=== PATIENT | female | born 1960 | race Caucasian/White ===

== ENCOUNTER 2024-06-06 09:24 | Outpatient (AMB) | payer OTHER, SELFPAY ==
--- NOTE | 2024-06-06 09:31 | A.OFFPC_ITS ---
Vital Signs 06/06/24 09:41 06/06/24 09:53 Height 5 ft 1.02 in Weight 125 lb 6 oz BMI 23.7 BP 118/68 Blood Pressure Location Rt brachial Position Sitting Respiration 14 Pulse 41 L 56 Pulse Source Pulse Oximeter Temp 98.3 F Temp Source Oral Pulse Oximetry (%) 99 Oxygen Delivery Method Room Air Intake Visit Reasons: Physical Exam Intake Note: New patient visit [employer] Required: No Tobacco use date assessed: 06/06/24 Dental Screening Dental Screen Date: 06/06/24 Did you have a dental visit in the last 12 months?: Yes Did you have a dental problem in the last 6 months where you did not have access to dental care?: No Was dental information given to patient?: Patient has dentist HPI HPI Comments History of Present Illness Details This is a 63-year-old female with a past medical history of sleep apnea, RLS, hypertension, hyperlipidemia, depression with anxiety and insomnia presenting for a physical exam. She transferred from my panel at [facility] primary care. Records transfer pending. Patient takes amlodipine 5 mg daily for hypertension. This is well-controlled. Her heart rate initially today was 41. It was 49 on her initial EKG, 53 on her subsequent EKG and 56 when I checked manually. Patient feels well today. No dizziness, palpitations, chest pain, syncope or shortness of breath. We pulled up a note from [facility], and her heart rate was 66 at her last appointment earlier this year. Mammogram is up-to-date per patient. Her records have not transferred from [facility] yet. She has not had a colonoscopy. She has a gastroenterology appointment scheduled to discuss her concerns about the procedure. She does not want anesthesia, and she wants to see if there is an alternative to the traditional prep. She would like to have a Cologuard done in the meantime. She does not have a history of colon cancer or polyps. Eye and dental exams are up-to-date as well as her annual gynecologic exam. She sees Dr. Mireille Benavides at [facility] neurology for sleep apnea and RLS. Patient would like to make an appointment with Dr. Benavides regarding ongoing episodes of dizziness for 3 years. Patient says sometimes it feels like her brain is moving when she is not. Difficult for her to describe. She was reading about this online, and she says it is something to do with the spine. It h appens when she is standing and sitting. She does not have to be moving to trigger this. Patient endorses anterior left knee pain only with kneeling for the past 3 months. She was doing modified pushups on her knees before it started. She has normal range of motion. She can walk and go up and downstairs without any pain. She doesn't plan to get further boosters of COVID-19 vaccine. She is going to get the flu shot. ROS: Constitutional: No unexplained weight loss, fever, chills or night sweats. Eyes: No vision changes, blurry vision, double vision, eye pain, eye redness, eye discharge. ENT: No hearing loss, sneezing, congestion, runny nose or sore throat. Respiratory: No shortness of breath, cough or sputum production. Cardiovascular: No chest pain, chest pressure or chest discomfort. No palpitations or pedal edema. Gastrointestinal: No anorexia, nausea, vomiting or diarrhea. No abdominal pain or blood in stool. Genitourinary: No dysuria, hematuria, urinary frequency. Neurologic: No headache, syncope, unilateral weakness, ataxia, numbness or tingling in the extremities. Musculoskeletal: see HPI Hematologic/Lymphatics: No bleeding or bruising. No painful lymph nodes. Skin: No rash or itching. Endocrine: No cold or heat intolerance. No polyuria or polydipsia. Psychiatric: No SI/HI. Physical exam: Constitutional: Alert, in no distress. Head: Normocephalic. Eyes: Pupils are equal, round and reactive to light. Extraocular muscles intact. Ear, Nose and Throat: Canals clear. TMs normal. Normal nasal mucosa. No nasal discharge. No oral lesions. Neck: Supple, Full range of motion. No lymphadenopathy. No palpable thyroid masses. Respiratory: Clear to auscultation. Cardiovascular: S1 S2 regular. No murmurs. Gastrointestinal: Abdomen soft, non-tender, non-distended. Normal bowel sounds. No palpable masses. Neurologic: No focal neurological deficits. Symmetric patellar reflexes. Moves all extremities spontaneously. Sensation intact bilaterally. Skin: No rash. Knees: No gross deformities. Normal range of motion. No visible swelling. Nontender. Normal gait. Extremities: Warm and well perfused. No clubbing, cyanosis or edema. 3+ peripheral pulses bilaterally. Psychiatric: Normal mood and affect [facility] Medical History (Updated 06/06/24 @ 12:15 by SANJU Kiser) Left knee pain Bradycardia Dizziness Weight loss, unintentional Sleep apnea Restless leg syndrome Periodic limb movement disorder DOMI (obstructive sleep apnea) Insomnia Hyperlipidemia Hypercoagulable state Foot cramps Exposure to hepatitis C Eczema Depression Benign essential hypertension Anxiety Surgical History (Updated 06/06/24 @ 09:57 by Purvi Brooks CMA) History of nasal surgery History of back surgery Family History (Updated 06/06/24 @ 11:05 by Purvi Brooks CMA) Mother HTN (hypertension) Clotting disorder Father HTN (hypertension) Clotting disorder Brother Prostate cancer Other High blood cholesterol Social History (Updated 06/06/24 @ 09:58 by Purvi Brooks CMA) Housing: House Patient Tobacco Use Status: Never used Tobacco e-Cigarette/Vaping Use: Never Used Second Hand Smoke Exposure: No service: No Current occupational status: unemployed Cognitive needs: No Hearing needs: No Vision needs: Yes (glasses) Questionnaire PHQ-9 Over the last 2 weeks, how often have you been bothered by any of the following problems? 1. Little interest or pleasure in doing things: not at all 2. Feeling down, depressed, or hopeless: not at all 3. Trouble falling or staying asleep, or sleeping too much: more than half the days 4. Feeling tired or having little energy: not at all 5. Poor appetite or overeating: not at all 6. Feeling bad about yourself - or that you are a failure or have let yourself or your family down: not at all 7. Trouble concentrating on things, such as reading the newspaper or watching television: not at all 8. Moving or speaking so slowly that other people could have noticed. Or the opposite - being so fidgety or restless that you have been moving around a lot more than usual: not at all 9. Thoughts that you would be better off or of hurting yourself in some way: not at all Total score: 2 Depression Screening Interpretation: Positive Depression Screening Done: Yes 33040 - PHQ-9 Billing: Yes Source: Developed by Drs. Alistair Salinas, Chiquis Moore, Scottie Wharton and colleagues, with an educational jeannie from [employer]. Thrive Questionnaire Date Thrive assessed: 06/06/24 I am a: Patient What is your living situation today?: I have a steady place to live Within the past 12 months, did the food you bought not last and you didn't have the money to get more?: Never true Within the past 12 months, did you worry whether your food would run out before you got money to buy more?: Never true Do you have trouble paying for medicines?: No Do you have trouble getting transportation to medical appointments?: No Do you have trouble paying your heating and electricity bill?: Yes Do you have trouble taking care of your child, family member or friend?: No Do you have trouble with day-to-day activities such as bathing, preparing meals, shopping, managing finances, etc.?: No Are you currently unemployed and looking for a job?: No Are you interested in more education?: No Please select the resources that you would like help with: Utilities Currently or been in a relationship where the following occur: No concerns reported THRIVE Score: 1 AUDIT C Alcohol Use Questionnaire (AUDIT-C) 1. How often do you have a drink containing alcohol?: 4 or more times a week 2. How many drinks containing alcohol do you have on a typical day when you are drinking?: 1 or 2 3. How often do you have six or more drinks on one occasion?: Never Total Score: 4 APOLINAR-7 AMB Questionnaire APOLINAR-7 Date APOLINAR - 7 assessed: 06/06/24 Feeling nervous, anxious, or on edge: 0 = Not at all Not being able to stop or control worryin = Not at all Worrying too much about different things: 0 = Not at all Trouble relaxin = Not at all Being so restless that it is hard to sit still: 0 = Not at all Becoming easily annoyed or irritable: 0 = Not at all Feeling afraid as if something awful might happen: 0 = Not at all Total APOLINAR-7 score (0-4 normal; 5-9 mild; 10-14 moderate; 15-21 severe): 0 Source: Developed by Drs. Alistair Salinas, Chiquis Moore, Scottie Wharton and colleagues, with an educational jeannie from [employer]. APOLINAR-7 Assessment Billing APOLINAR-7 Assessment Tool: APOLINAR-7 Assessment 38778 Physical exam (Primary Care) Vital Signs: Last Vital Signs Temp 98.3 F 06/06/24 09:41 Pulse 56 06/06/24 09:53 Resp 14 06/06/24 09:41 BP 118/68 06/06/24 09:41 Pulse Ox 99 06/06/24 09:41 Oxygen Delivery Method Room Air 06/06/24 09:41 BMI result Body Mass Index 23.7 Tobacco/Smoking Status: Tobacco use Status Tobacco use date assessed 06/06/24 06/06/24 09:44 Patient Tobacco Use Status Never used Tobacco 06/06/24 09:58 e-Cigarette/Vaping Use Never Used 06/06/24 09:58 PHQ-9: PHQ-9 Score PHQ-9: Total score 2 06/06/24 11:05 Depression Screening Interpretation: Positive Thrive Assessment: Date of Thrive Assessment Date Thrive assessed 06/06/24 06/06/24 11:05 Currently or been in a relationship where the following occur: No concerns reported Office Procedures EKG Details: Patient's EKG shows sinus bradycardia, heart rate 53, left axis deviation [id number], Complete Assessment and Plan Assessment & Plan (1) Routine physical examination: Code(s): Z00.00 - Encounter for general adult medical examination without abnormal findings (2) Insomnia: Code(s): G47.00 - Insomnia, unspecified Plan: Continue zolpidem. She is prescribed 10 mg nightly, but she does not take this amount every night. She is aware it is more than the FDA recommended dose for women. She has been on it for years. I forgot to have her sign a controlled substance agreement today so she will do this at her next appointment. (3) DOMI (obstructive sleep apnea): Code(s): G47.33 - Obstructive sleep apnea (adult) (pediatric) (4) Periodic limb movement disorder: Code(s): G47.61 - Periodic limb movement disorder (5) Bradycardia: Code(s): R00.1 - Bradycardia, unspecified Plan: I am unsure if the dizziness she is reporting is related to bradycardia. Heart rate has decreased over this past year compared to record from [facility]. Patient referred to Cardiology to review EKGs and bradycardia. Warning signs warranting ER evaluation reviewed with the patient. (6) Benign essential hypertension: Code(s): I10 - Essential (primary) hypertension Plan: Continue amlodipine. (7) Hyperlipidemia: Code(s): E78.5 - Hyperlipidemia, unspecified Plan: Check fasting lipid profile. (8) Restless leg syndrome: Code(s): G25.81 - Restless legs syndrome Plan: Patient is seen today for a routine physical. As part of this visit we reviewed the following issues, which are considered and essential part of preventative health in this age group: - Breast Cancer screening - Annual Car Varnisher exam - Screening for colon cancer - Blood pressure screening - Cholesterol screening - Osteoporosis prevention including calcium/vitamin D intake, weight bearing exercise & smoking cessation - Nutritional and exercise counseling - Counseling of injury prevention including fire prevention, smoke alarms and seat belt usage - Screening for depression - Prevention of and/or testing for infectious diseases- agreeable to screenings including HIV testing. - Education about skin cancer - Recommendations about immunizations - Recommendation of an eye exam - Screening for substance abuse Follow up in 6 months. (9) Left knee pain: Code(s): M25.562 - Pain in left knee Plan Avoid kneeling or use knee pads if you must. She can do home PT exercises, declines referral to PT. Use neoprene sleeve for compression. Apply ice as needed for inflammation and pain. Orders: Orders IRON PROFILE Today R53.83 - Other fatigue Ferritin Today R53.83 - Other fatigue AMB EKG-In Office Today R42 - Dizziness and giddiness Comprehensive Met. Panel Today E78.5 - Hyperlipidemia, unspecified, G25.81 - Restless legs syndrome, R42 - Dizziness and giddiness Lipid Panel Today E78.5 - Hyperlipidemia, unspecified, G25.81 - Restless legs syndrome, R42 - Dizziness and giddiness TSH reflex Free T4 Today R42 - Dizziness and giddiness Vitamin D 1,25 dihydroxy Today G25.81 - Restless legs syndrome, I10 - Essential (primary) hypertension, R42 - Dizziness and giddiness CT NG by PCR Today Z20.2 - Contact with and (suspected) exposure to infections with a predominantly sexual mode of transmission HIV Ab/Ag Today Z20.2 - Contact with and (suspected) exposure to infections with a predominantly sexual mode of transmission Syphilis Screen Today Z20.2 - Contact with and (suspected) exposure to infections with a predominantly sexual mode of transmission Complete Blood Count Auto Diff Today R53.83 - Other fatigue Hepatitis C Antibody Today Z20.2 - Contact with and (suspected) exposure to infections with a predominantly sexual mode of transmission Referrals Cardiology Referral R00.1 - Bradycardia, unspecified Cologuard Test Z12.11 - Encounter for screening for malignant neoplasm of colon, Z12.12 - Encounter for screening for malignant neoplasm of rectum Medications: New zolpidem 10 mg PO BEDTIME PRN 30 tabs 0RF insomnia Coding Level of Care Code Est Pt Level 3 (48401) Est Pt Prev Care 40-64y(47891) Diagnoses Routine physical examination Z00.00 Insomnia G47.00 DOMI (obstructive sleep apnea) G47.33 Periodic limb movement disorder G47.61 Bradycardia R00.1 Benign essential hypertension I10 Hyperlipidemia E78.5 Restless leg syndrome G25.81 Left knee pain M25.562 CPT Codes EKG - CPT: 51271-[id number], Complete ([id number]) Additional Codes APOLINAR-7 Assessment Billing - APOLINAR-7 Assessment Tool: APOLINAR-7 Assessment [id number] ([id number])
[2024-06-06 09:41] VITALS: BP 118/68; PULSE 41; RESP 14; TEMP 36.8; O2SAT 99; BMI 23.7
[2024-06-06 09:53] VITALS: PULSE 56
== END 2024-06-06 10:55 | disposition home or self-care (01) ==
PROVIDERS: PCP Physician Assistant Medical; Visit Provider Physician Assistant Medical
DX: Z00.00 Encounter for general adult medical examination without abnormal findings (principal); G47.00 Insomnia, unspecified; G47.33 Obstructive sleep apnea (adult) (pediatric); G47.61 Periodic limb movement disorder; R00.1 Bradycardia, unspecified; I10 Essential (primary) hypertension; E78.5 Hyperlipidemia, unspecified; G25.81 Restless legs syndrome; M25.562 Pain in left knee

== ENCOUNTER → 2024-06-06 09:24 | Outpatient (BNVA) | payer OTHER, SELFPAY | PROVIDERS: PCP Physician Assistant Medical; Visit Provider Physician Assistant Medical | DX: Z00.01 Encounter for general adult medical examination with abnormal findings (principal); G47.00 Insomnia, unspecified; G47.33 Obstructive sleep apnea (adult) (pediatric); G47.61 Periodic limb movement disorder; R00.1 Bradycardia, unspecified; I10 Essential (primary) hypertension; E78.5 Hyperlipidemia, unspecified; G25.81 Restless legs syndrome; M25.562 Pain in left knee; Z79.899 Other long term (current) drug therapy | CPT/HCPCS: 93005; 96127 ==

== ENCOUNTER 2024-06-06 10:56 | Outpatient (REF) | payer OTHER, SELFPAY ==
[2024-06-06 14:24] LABS: MANUAL DIFF FLAG NO
[2024-06-06 14:27] LABS: Basophils Absolute Auto 0.1 X10*3/uL (0.0-0.2); Basophils Percent Auto 0.8 % (0-2); Eosinophils Absolute Auto 0.1 X10*3/uL (0.0-0.4); Eosinophils Percent Auto 0.9 % (0-4); Hematocrit 42.2 % (37.0-47.0); Hemoglobin 14.6 g/dl (12.0-16.0); Imm Gran Abs Auto 0.01 X10*3/uL (0.00-0.03); Imm Gran Pct Auto 0.2 % (0.0-0.4); Lymphocytes Absolute Auto 2.8 X10*3/uL (1.2-4.9); Lymphocytes Percent Auto 44.1 % (20-40); Mean Corpuscular HGB Conc 34.6 g/dl (31.0-35.0); Mean Corpuscular Hemoglobin 32.4 pg (27.0-33.0); Mean Corpuscular Volume 93.8 fL (80.0-98.0); Monocytes Absolute Auto 0.6 X10*3/uL (0.1-1.2); Monocytes Percent Auto 9.5 % (2-11); Neutrophils Absolute Auto 2.9 x10*3/uL (2.0-8.3); Neutrophils Percent Auto 44.5 % (45-73); Platelet Count 260 X10*3/uL (160-400); Red Cell Distribution Width 12.1 % (11.0-16.0); White Blood Count 6.4 X10*3/uL (4.8-10.8)
[2024-06-06 14:52] LABS: Alanine Aminotransferase 24 U/L (0-31); Albumin Level 4.4 g/dL (3.5-5.0); Alkaline Phosphatase 80 U/L (39-117); Anion Gap 11 (12-20); Aspartate Amino Transferase 28 U/L (5-31); Blood Urea Nitrogen 16 mg/dL (9-16); Carbon Dioxide 27 mmol/L (22-29); Chloride 105 mmol/L (96-108); Cholesterol 207 mg/dL (<200); Estimated Glomerular Filt Rate > 60; Glucose Random 94 mg/dL (60-115); HDL Cholesterol 104 mg/dL (>40); Iron 123 mcg/dL (30-160); LDL Cholesterol Calculated 93 mg/dL (<100); Percent Iron Saturation 40 % (15-50); Potassium 3.9 mmol/L (3.3-5.1); Sodium 139 mmol/L (135-145); Total Iron Binding Capacity 307 mcg/dL (228-428); Total Protein 7.3 g/dL (6.5-8.0); Triglycerides 53 mg/dL (<150); Unsaturated Iron Binding 184 ug/dL
[2024-06-06 15:06] LABS: Ferritin 177 ng/mL (10-250); TSH reflex Free T4 0.95 uIU/mL (0.32-4.0)
[2024-06-07 08:50] LABS: HIV AB/AG Nonreactive (Nonreactive); HIV Num 1 0.05 S/CO (0.00-0.99); ~Hepatitis C Antibody Nonreactive (Nonreactive)
[2024-06-07 08:54] LABS: Syphilis Screen Nonreactive (Nonreactive)
[2024-06-10 20:03] LABS: VITAMIN D (1,25 OH) D3 58 pg/mL; Vit D (1,25-Dihydroxy) Total 58 pg/mL (18-72); Vitamin D (1,25 OH) D2 <8 pg/mL
== END 2024-06-06 10:57 | disposition home or self-care (01) ==
LOC: HO.WFDLDS 10:56
PROVIDERS: Visit Provider Physician Assistant Medical
DX: R53.83 Other fatigue (principal); E78.5 Hyperlipidemia, unspecified; G25.81 Restless legs syndrome; R42 Dizziness and giddiness; I10 Essential (primary) hypertension; Z20.2 Contact with and (suspected) exposure to infections with a predominantly sexual mode of transmission
CPT/HCPCS: 36415; 80053; 80061; 82652; 82728; 83540; 84443; 85025; 86780; 86803; 87389

== ENCOUNTER 2024-12-08 09:02 | Outpatient (AMB) | payer OTHER, SELFPAY ==
--- NOTE | 2024-12-08 09:06 | A.OFFPC_ITS ---
Vital Signs 12/08/24 09:24 12/09/24 09:06 Height 5 ft 1.02 in Weight 111 lb BMI 21.0 BP 100/58 L 127/62 Blood Pressure Location Rt brachial Position Sitting Respiration 12 Pulse 62 Pulse Source Pulse Oximeter Pulse Oximetry (%) 100 Oxygen Delivery Method Room Air Intake Visit Reasons: htn Intake Note: Sahuna presents in the office today for a follow up to hypertension. Go over lab results. 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: No Allergies No Known Allergies Allergy (Verified 12/08/24 09:18) Tobacco use date assessed: 12/08/24 Fall risk assessment: No Falls in past year Last assessed Fall Risk: 12/08/24 Dental Screening Dental Screen Date: 12/08/24 Did you have a dental visit in the last 12 months?: Yes Did you have a dental problem in the last 6 months where you did not have access to dental care?: No Was dental information given to patient?: Patient has dentist HPI HPI Comments History of Present Illness Details This is a 64-year-old female with a past medical history of sleep apnea, RLS, hypertension, hyperlipidemia, depression with anxiety and insomnia presenting for follow up. Patient takes amlodipine 5 mg daily for hypertension. This is well-controlled. Patient saw Dr. Chapman for evaluation of bradycardia. She did a 3 day Holter monitor and is waiting on the results. She was referred for bradycardia and complaints of intermittent lightheadedness. No chest pain, shortness of breath or syncope. It was unclear if it lightheadedness was related to bradycardia. She endorses pain of her right posterior shoulder pain and right posterolateral rib pain when she does movements in exercises over the past few months. In the winter she leaned down and used her right arm to try to lift someone who had fallen in the snow, and they fell back pulling her along with them. Her pain started after this. She did not have x-rays done. No shortness a breath or chest pain or leg swelling. She exercises regularly. No bruising or discoloration. She sees Dr. Mireille Benavides at [facility] neurology for sleep apnea and RLS. At our last visit we discussed the patient making an appointment with Dr. Benavides regarding ongoing dizziness for the past 3-1/2 years. She described it as feeling like her brain is moving when she is not. She says it was difficult for her to describe. She has been researching online and had a video today concerning issues in the cervical spine which can cause ringing in her ears which she has chronically as well. Patient says when she moves her head sometimes it feels like the bones in her neck or grinding. They happens whether she is sitting or standing. She does not have to be moving to trigger it. She also endorses a history of migraine headaches. She was seen by a chiropractor for symptoms in the past. The patient's of cancer. Patient says that sometimes providers overlook medical issues, so she wants to be very proactive about her health. She discusses her CBC from 06/06/2024 which demonstrates no leukocytosis or anemia, and her platelet count was normal. The absolute count of neutrophils and lymphocytes is also normal, but the percentage of neutrophils and lymphocytes are outside of the normal lab range. Her neutrophil percentage was 44.5 whereas normal is con lab, and her lymphocyte percentage is 44.1% whereas our lab considers 20-40% normal. I asked if she has had frequent infections. She has not had frequent infections, but she says that she has been sick though not requiring hospitalizations within the past few years, and she also has o ngoing concerns about the eczematous rash for which she saw Dermatology. She would like blood work to check her immune system. Her HIV test in May 2024 was negative. Patient says she has also been watching videos of a physician online name Dr. Marsh who stresses the importance of diet in terms of cancer prevention. She stopped eating processed foods and going out to eat. Subsequently she lost weight. ROS: Constitutional: No unexplained weight loss, fevers or chills Eyes: No vision changes, blurry vision, double vision Respiratory: No shortness of breath, cough or sputum production. Cardiovascular: No chest pain, chest pressure or chest discomfort. No palpitations or pedal edema. Gastrointestinal: No anorexia, nausea, vomiting or diarrhea. No abdominal pain or blood in stool. Neurologic: No syncope, numbness, weakness, blackouts, seizures or tremors. See HPI. Musculoskeletal: see HPI Hematologic/Lymphatics: No bleeding or bruising. Physical exam: Constitutional: Alert, in no distress. Head: Normocephalic. Eyes: Pupils are equal, round and reactive to light. Extraocular muscles intact.s. Neck: Supple, Full range of motion. No lymphadenopathy. No palpable thyroid masses. Respiratory: Clear to auscultation. Cardiovascular: S1 S2 regular. No murmurs. Chest/back: No discoloration, swelling or palpable deformity. Nontender scapula, shoulder and ribs. Patient indicates that she has pain along the medial border of the right scapula and posterolateral ribs with arm movements during exercise. Gastrointestinal: Abdomen soft, non-tender, non-distended. Normal bowel sounds. No palpable masses. Neurologic: No focal neurological deficits. Symmetric patellar reflexes. Moves all extremities spontaneously. Sensation intact bilaterally. Cervical spine: Full range of motion. No midline tenderness. Extremities: Warm and well perfused. No clubbing, cyanosis or edema. Symmetric radial pulses. Psychiatric: Normal mood and affect [facility] Medical History (Updated 12/09/24 @ 09:16 by SANJU Kiser) Neck pain Migraines Pain of right scapula Rib pain on right side Left knee pain Bradycardia Dizziness Weight loss, unintentional Sleep apnea Restless leg syndrome Periodic limb movement disorder DOMI (obstructive sleep apnea) Insomnia Hyperlipidemia Hypercoagulable state Foot cramps Exposure to hepatitis C Eczema Depression Benign essential hypertension Anxiety Surgical History (Updated 06/06/24 @ 09:57 by Purvi Brooks CMA) History of nasal surgery History of back surgery Family History (Updated 06/06/24 @ 11:05 by Purvi Brooks CMA) Mother HTN (hypertension) Clotting disorder Father HTN (hypertension) Clotting disorder Brother Prostate cancer Other High blood cholesterol Social History (Updated 12/08/24 @ 09:23 by Cierra Blank MA) Housing: House Alcohol intake: current Patient Tobacco Use Status: Never used Tobacco e-Cigarette/Vaping Use: Never Used Second Hand Smoke Exposure: No service: No Current occupational status: employed 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 1. Little interest or pleasure in doing things: not at all 2. Feeling down, depressed, or hopeless: not at all 3. Trouble falling or staying asleep, or sleeping too much: several days 4. Feeling tired or having little energy: several days 5. Poor appetite or overeating: not at all 6. Feeling bad about yourself - or that you are a failure or have let yourself or your family down: not at all 7. Trouble concentrating on things, such as reading the newspaper or watching television: not at all 8. Moving or speaking so slowly that other people could have noticed. Or the opposite - being so fidgety or restless that you have been moving around a lot more than usual: not at all 9. Thoughts that you would be better off or of hurting yourself in some way: not at all Total score: 2 Depression Screening Interpretation: Negative Depression Screening Done: Yes 60118 - PHQ-9 Billing: Patient declined-do not bill Source: Developed by Drs. Alistair Salinas, Chiquis Moore, Scottie Wharton and colleagues, with an educational jeannie from [employer]. Thrive Questionnaire Date Thrive assessed: 12/08/24 I am a: Patient What is your living situation today?: I have a steady place to live Within the past 12 months, did the food you bought not last and you didn't have the money to get more?: Never true Within the past 12 months, did you worry whether your food would run out before you got money to buy more?: Never true Do you have trouble paying for medicines?: No Do you have trouble getting transportation to medical appointments?: No Do you have trouble paying your heating and electricity bill?: Yes Do you have trouble taking care of your child, family member or friend?: No Do you have trouble with day-to-day activities such as bathing, preparing meals, shopping, managing finances, etc.?: No Are you currently unemployed and looking for a job?: No Are you interested in more education?: No Please select the resources that you would like help with: None Currently or been in a relationship where the following occur: No concerns reported THRIVE Score: 1 AUDIT C Alcohol Use Questionnaire (AUDIT-C) 1. How often do you have a drink containing alcohol?: 2-4 times a month 2. How many drinks containing alcohol do you have on a typical day when you are drinking?: 1 or 2 3. How often do you have six or more drinks on one occasion?: Never Total Score: 2 APOLINAR-7 AMB Questionnaire APOLINAR-7 Date APOLINAR - 7 assessed: 12/08/24 Feeling nervous, anxious, or on edge: 0 = Not at all Not being able to stop or control worryin = Not at all Worrying too much about different things: 1 = Several days Trouble relaxin = Not at all Being so restless that it is hard to sit still: 1 = Several days Becoming easily annoyed or irritable: 0 = Not at all Feeling afraid as if something awful might happen: 0 = Not at all Total APOLINAR-7 score (0-4 normal; 5-9 mild; 10-14 moderate; 15-21 severe): 2 Source: Developed by Drs. Alistair Salinas, Chiquis Moore, Scottie Wharton and colleagues, with an educational jeannie from [employer]. APOLINAR-7 Assessment Billing APOLINAR-7 Assessment Tool: APOLINAR-7 Assessment 25169 Physical exam (Primary Care) Vital Signs: Last Vital Signs Pulse 62 12/08/24 09:24 Resp 12 12/08/24 09:24 BP 100/58 L 12/08/24 09:24 Pulse Ox 100 12/08/24 09:24 Oxygen Delivery Method Room Air 12/08/24 09:24 BMI result Body Mass Index 21.0 Tobacco/Smoking Status: Tobacco use Status Tobacco use date assessed 12/08/24 12/08/24 09:12 Patient Tobacco Use Status Never used Tobacco 12/08/24 09:23 e-Cigarette/Vaping Use Never Used 12/08/24 09:23 PHQ-9: PHQ-9 Score PHQ-9: Total score 2 12/08/24 09:40 Depression Screening Interpretation: Negative Thrive Assessment: Date of Thrive Assessment Date Thrive assessed 12/08/24 12/08/24 09:12 Currently or been in a relationship where the following occur: No concerns reported Coding Level of Care Code Est Pt Level 5 (34490) Complex EM visit Add On G2211 Diagnoses Bradycardia R00.1 Benign essential hypertension I10 Dizziness R42 Pain of right scapula M89.8X1 Rib pain on right side R07.81 Migraines G43.909 Neck pain M54.2 Additional Codes APOLINAR-7 Assessment Billing - APOLINAR-7 Assessment Tool: APOLINAR-7 Assessment 46513 ([id number]) Time Spent (min) 55 Comment Direct patient care and completing documentation Assessment & Plan Assessment & Plan (1) Bradycardia: Code(s): R00.1 - Bradycardia, unspecified Category: Medical Plan: Patient will follow up with Cardiology for the results of her Holter monitor. (2) Benign essential hypertension: Code(s): I10 - Essential (primary) hypertension Category: Medical Plan: Controlled. Continue amlodipine. She has lost weight following dietary modification. (3) Dizziness: Code(s): R42 - Dizziness and giddiness Category: Medical Plan: Patient is seeing Cardiology for bradycardia evaluation though it is unknown if this is related to the episode she describes. She has concerns about cervical spine issues due to history of migraines and tinnitus and wants neuro evaluation. I will refer her back to her Neurology group for this. Advised patient they may request imaging prior to evaluation which she would be willing to do, but she defers me to order imaging of the head and neck at this time. Rechecking labs. Patient also wanted to recheck CBC with differential, and I will order immunoglobulins owing to other concerns outlined in HPI. (4) Pain of right scapula: Code(s): M89.8X1 - Other specified disorders of bone, shoulder Category: Medical Plan: Following injury during the winter. X-ray ordered. (5) Rib pain on right side: Code(s): R07.81 - Pleurodynia Category: Medical Plan: See above notes on scapular pain. (6) Migraines: Code(s): G43.909 - Migraine, unspecified, not intractable, without status migrainosus Category: Medical Plan: See above notes regarding dizziness. (7) Neck pain: Code(s): M54.2 - Cervicalgia Category: Medical Plan: See notes above. Plan Follow up in 6 months for a physical exam. Orders: Orders TSH reflex Free T4 12/08/24 E78.5 - Hyperlipidemia, unspecified, G25.81 - Restless legs syndrome, G47.00 - Insomnia, unspecified, I10 - Essential (primary) hypertension Complete Blood Count Auto Diff 12/08/24 E78.5 - Hyperlipidemia, unspecified, G25.81 - Restless legs syndrome, G47.00 - Insomnia, unspecified, I10 - Essential (primary) hypertension Comprehensive Met. Panel 12/08/24 E78.5 - Hyperlipidemia, unspecified, G25.81 - Restless legs syndrome, G47.00 - Insomnia, unspecified, I10 - Essential (primary) hypertension Immunoglobulins,IgG IgA IgM 12/08/24 E78.5 - Hyperlipidemia, unspecified, G25.81 - Restless legs syndrome, G47.00 - Insomnia, unspecified, I10 - Essential (primary) hypertension, R77.8 - Other specified abnormalities of plasma proteins XR ribs RT 2V 12/08/24 R07.81 - Pleurodynia XR scapula RT 12/08/24 M89.8X1 - Other specified disorders of bone, shoulder
--- OUTSIDE RECORDS SUMMARY | 2024-12-08 09:17 | XMS_ITS | Clinical Summary ---
Author Organization [facility] Address [address] [place] [address] Care Team Providers Care Diamond Broker Name Role Phone Shyla Hines MD Primary Care Provide r Allergies No known active allergies Medications Medication Sig Dispensed Refills Start Date End Date Status AMLODIPINE BESYLATE PO Take 7.5 mg by mouth daily. Take 2.5 mg with 5 mg to make up 7.5mg total 0 Active estradiol (CLIMARA) 0.1 MG/24HR Place 1 patch onto the skin once a week. 0 Active norethindrone (AYGESTIN) 5 MG tablet Take 5 mg by mouth daily. 0 Active sertraline (ZOLOFT) 25 MG tablet Take 25 mg by mouth daily. 0 Active zolpidem (AMBIEN) 10 MG tablet Take 10 mg by mouth every night at bedtime as needed for sleep. 0 Active Active Problems Problem Noted Date Diagnosed Date Family history of pulmonary embolism 12/23/2018 Prothrombin gene mutation 12/23/2018 Family History Medical History Relation Name Comments Pulmonary embolism Brother Thrombophilia Mother Relation Name Status Comments Brother Factor 2 mutati on Mother factor 2 mutati on Social History Tobacco Use Types Packs/Day Years Used Date Smoking Tobacco: Never Smokeless Tobacco: Never Alcohol Use Standard Drinks/Week Comments Yes 0 (1 standard drink = 0.6 oz pur e alcohol) small amount during the week Sex and Gender Information Value Date Recorded Sex Assigned at Not on file Gender Identity Not on file Sexual Orientation Not on file Last Filed Vital Signs Vital Sign Reading Time Taken Comments Blood Pressure 131/60 12/23/2018 3:00 PM EDT Pulse 64 12/23/2018 3:00 PM EDT Temperature 36.7 ??C (98.1 ??F) 12/23/2018 3:00 PM ED T Respiratory Rate - - Oxygen Saturation - - Inhaled Oxygen Concentration - - Weight 60.8 kg (134 lb) 12/23/2018 3:00 PM EDT Height 157.5 cm (5' 2 ) 12/23/2018 3:00 PM EDT Body Mass Index 24.51 12/23/2018 3:00 PM EDT Plan of Treatment Health Maintenance Due Date Last Done Comments Hepatitis C Screening 1960 COVID-19 Vaccine (#1) 02/22/1961 Depression Screening 1972 Preventative Health Evaluation 1978 DTap / Tdap / Td (1 - Tdap) 1979 Cervical Cancer Screening (P ap Smear) 1981 Colon Cancer Screening (Colonoscopy) 2005 Breast Cancer Screening (Mammogram) 2010 Shingrix-Zoster Vaccine (1 of 2) 2010 Influenza Vaccine (#1) 2024 Pneumococcal Vaccine (1 of 1 - PCV) 2025 RSV Adult > 60+ Yrs or Pregn ant (1 - 1-dose 75+ series) 2035 Hepatitis B Vaccines Aged Out No long er eligible based on patient's age to complete this topic Pneumococcal Vaccine Aged Out No long er eligible based on patient's age to complete this topic RSV Ped < 20 months Aged Out No longe r eligible based on patient's age to complete this topic Care Teams Diamond Broker Relationship Specialty Start Date End Date Shyla Hines MD [address] [place] [id number] PCP - General Internal Medicine 12/09/18
[2024-12-08 09:24] VITALS: BP 100/58; PULSE 62; RESP 12; O2SAT 100; BMI 21.0
[2024-12-09 09:06] VITALS: BP 127/62
== END 2024-12-08 10:03 | disposition home or self-care (01) ==
LOC: HO.HMCFM 09:03
PROVIDERS: PCP Physician Assistant Medical; Visit Provider Physician Assistant Medical
DX: R00.1 Bradycardia, unspecified (principal); I10 Essential (primary) hypertension; R42 Dizziness and giddiness; M89.8X1 Other specified disorders of bone, shoulder; R07.81 Pleurodynia; G43.909 Migraine, unspecified, not intractable, without status migrainosus; M54.2 Cervicalgia

== ENCOUNTER → 2024-12-08 09:02 | Outpatient (BNVA) | payer OTHER, SELFPAY | PROVIDERS: PCP Physician Assistant Medical; Visit Provider Physician Assistant Medical | DX: R00.1 Bradycardia, unspecified (principal); I10 Essential (primary) hypertension; R42 Dizziness and giddiness; M89.8X1 Other specified disorders of bone, shoulder; R07.81 Pleurodynia; G43.909 Migraine, unspecified, not intractable, without status migrainosus; M54.2 Cervicalgia; Z79.899 Other long term (current) drug therapy | CPT/HCPCS: 96127 ==

== ENCOUNTER 2024-12-24 09:38 | Outpatient (REF) | payer OTHER, SELFPAY ==
--- NOTE | ~2024-12-24 | XR_ITS ---
EXAMINATION: XR RIBS, RIGHT CLINICAL INFORMATION: R07.81 - Pleurodynia COMPARISON: None available. TECHNIQUE: PA chest, and 3 views of the right ribs were obtained. FINDINGS: Lungs are clear. No consolidation, pneumothorax, or pleural effusion. The cardiomediastinal silhouette and pulmonary vasculature are normal. Osseous structures are unremarkable. Ribs are intact. No fractures are identified. XR/XR ribs RT min 3V w CXR1V IMPRESSION: No acute bony abnormalities. The lungs are clear. Electronically signed by: Kole Zurita MD 12/27/2024 12:35 PM EDT
--- NOTE | ~2024-12-24 | XR_ITS ---
EXAMINATION: XR SCAPULA, RIGHT CLINICAL INFORMATION: M89.8X1 - Other specified disorders of bone, shoulder COMPARISON: None available. TECHNIQUE: AP and scapular Y views of the right scapula. FINDINGS: The bones and soft tissues are normal. No scapular fracture. Glenohumeral and acromioclavicular alignment is normal. Mild arthritis of the AC joint. XR/XR scapula RT IMPRESSION: Normal right scapula. Electronically signed by: Kole Zurita MD 12/27/2024 09:20 AM EDT
[2024-12-24 10:53] LABS: MANUAL DIFF FLAG NO
[2024-12-24 11:02] LABS: Basophils Percent Auto 0.7 % (0-2); Eosinophils Absolute Auto 0.1 X10*3/uL (0.0-0.4); Eosinophils Percent Auto 1.2 % (0-4); Hematocrit 40.8 % (37.0-47.0); Hemoglobin 14.1 g/dl (12.0-16.0); Imm Gran Abs Auto 0.01 X10*3/uL (0.00-0.03); Imm Gran Pct Auto 0.2 % (0.0-0.4); Lymphocytes Absolute Auto 2.6 X10*3/uL (1.2-4.9); Lymphocytes Percent Auto 43.9 % (20-40); Mean Corpuscular HGB Conc 34.6 g/dl (31.0-35.0); Mean Corpuscular Hemoglobin 31.8 pg (27.0-33.0); Mean Corpuscular Volume 92.1 fL (80.0-98.0); Mean Platelet Volume 10.6 fL (9.4-12.3); Monocytes Absolute Auto 0.6 X10*3/uL (0.1-1.2); Monocytes Percent Auto 9.3 % (2-11); Neutrophils Absolute Auto 2.6 x10*3/uL (2.0-8.3); Neutrophils Percent Auto 44.7 % (45-73); Platelet Count 215 X10*3/uL (160-400); Red Blood Count 4.43 X10*6/uL (4.20-5.50); Red Cell Distribution Width 12.6 % (11.0-16.0); White Blood Count 5.9 X10*3/uL (4.8-10.8)
[2024-12-24 11:39] LABS: Alanine Aminotransferase 61 U/L (0-31); Albumin Level 4.3 g/dL (3.5-5.0); Anion Gap 9 (12-20); Aspartate Amino Transferase 50 U/L (5-31); Bilirubin Total 0.6 mg/dL (0.0-1.0); Blood Urea Nitrogen 20 mg/dL (9-16); Calcium 9.6 mg/dL (8.4-10.2); Carbon Dioxide 29 mmol/L (22-29); Chloride 107 mmol/L (96-108); Estimated Glomerular Filt Rate > 60; Glucose Random 78 mg/dL (60-115); Potassium 4.1 mmol/L (3.3-5.1); Sodium 141 mmol/L (135-145)
[2024-12-24 11:53] LABS: TSH reflex Free T4 0.99 uIU/mL (0.32-4.0)
[2024-12-24 12:58] LABS: Alkaline Phosphatase 85 U/L (39-117)
[2024-12-26 18:03] LABS: IgA 230 mg/dL (70-320); IgG 890 mg/dL (600-1540); IgM 61 mg/dL (50-300)
== END 2024-12-24 09:39 | disposition home or self-care (01) ==
LOC: HO.HMGCX 09:38
PROVIDERS: PCP Physician Assistant Medical; Visit Provider Physician Assistant Medical
DX: M89.8X1 Other specified disorders of bone, shoulder (principal); I10 Essential (primary) hypertension; G47.00 Insomnia, unspecified; G25.81 Restless legs syndrome; E78.5 Hyperlipidemia, unspecified; R77.8 Other specified abnormalities of plasma proteins
CPT/HCPCS: 36415; 71101; 73010; 80053; 82784; 84443; 85025

== ENCOUNTER → 2024-12-24 09:42 | Outpatient (BNV) | payer OTHER, SELFPAY | PROVIDERS: PCP Physician Assistant Medical; Visit Provider Radiology Diagnostic Radiology | DX: R07.81 Pleurodynia (principal); M89.8X1 Other specified disorders of bone, shoulder | CPT/HCPCS: 71101; 73010 ==

== ENCOUNTER 2025-02-20 07:47 | Outpatient (REF) | payer OTHER, SELFPAY ==
--- NOTE | ~2025-02-20 | US_ITS ---
EXAMINATION: US ABDOMEN LIMITED WITH LIVER ELASTOGRAPHY CLINICAL INFORMATION: Abnormal levels of serum enzymes. COMPARISON: None available. TECHNIQUE: Real-time imaging of the abdominal viscera. Noninvasive ultrasound liver fibrosis assessment is performed using Cm ElastPQ point quantification shear wave elastography (2D-SWE) with a C5-2 MHz transducer. Multiple elastography samples are obtained. FINDINGS: PANCREAS: The visualized pancreatic head and body are normal in appearance. The remainder of the pancreas is obscured from visualization by the overlying bowel gas. LIVER: The liver demonstrates normal size and contour. Minimally increased hepatic echogenicity, likely fatty infiltration. No focal lesion or intrahepatic biliary duct dilatation. The right lobe measures 15.6 cm in length. Portal flow is towards the liver (hepatopetal). Shear wave liver elastography median stiffness is 1.67 m/s (reference: normal median stiffness is 1.3 m/s or less). IQR/median stiffness to assess sampling precision is 0.07 (reference: good quality data set is IQR/median stiffness of 0.15 or less). GALLBLADDER: The gallbladder is physiologically distended without evidence of stones, sludge, polyps, wall thickening or pericholecystic fluid. COMMON BILE DUCT: Normal in caliber measuring 0.7 cm in diameter. RIGHT KIDNEY: No hydronephrosis. No renal calculi or focal parenchymal lesions. The kidney measures 10.2 cm in maximum dimension. FREE FLUID: None. US/US abdomen macias w elastography IMPRESSION: 1. Minimally increased hepatic echogenicity, likely mild fatty infiltration. No focal hepatic lesion identified. 2. Liver elastography: In the absence of other known clinical signs, measurements rule out compensated advanced chronic liver disease. If there are known clinical signs, further testing may be needed for confirmation. 3. Normal gallbladder, bile ducts, and right kidney. REFERENCE: Society of Radiologists in Ultrasound Liver Stiffness Thresholds (2019): LIVER STIFFNESS THRESHOLDS: *Liver Stiffness equal or less than 1.3 m/s: High probability of being normal. *Liver Stiffness less than 1.7 m/s: In the absence of other known clinical signs, rules out compensated advanced chronic liver disease. *Liver Stiffness 1.7-2.1 m/s: Suggestive of compensated advanced chronic liver disease but need further test for confirmation. *Liver Stiffness over 2.1 m/s: Rules in compensated advanced chronic liver disease. *Liver Stiffness over 2.4 m/s: Suggestive of clinically significant portal hypertension. QUALITY OF DATA SET: *IQR/Median value equal or less than 0.15 implies a quality data set. *IQR/Median value over 0.15 implies a poor quality data set. SIGNIFICANT CHANGE FROM PRIOR EXAM: Significant change if liver stiffness measurement is 10% or greater from prior exam. OTHER CONSIDERATIONS: The stage of liver fibrosis may be overestimated in the setting of acute hepatitis, liver inflammation, elevated liver function tests, hepatic vascular congestion, obstructive cholestasis, non-fasting state, and infiltrative diseases such as amyloidosis and lymphoma. In some patients with NAFLD, the liver stiffness thresholds for compensated advanced chronic liver disease may be lower. In causes other than viral hepatitis and NAFLD, liver stiffness thresholds are not well established. Electronically signed by: Kole Zurita MD 02/20/2025 09:33 AM EDT
--- OUTSIDE RECORDS SUMMARY | 2025-02-20 07:50 | XMS_ITS | Clinical Summary ---
Author Organization [facility] Address [address] [place] [address] Care Team Providers Care Clinic Clerk Name Role Phone Shyla Hines MD Primary [...] Vaccine (1 of 2) 2010 Influenza Vaccine (Season Ended) 2025 Pneumococcal Vaccine (1 of 1 - PCV) [...] age to complete this topic Care Teams Clinic Clerk Relationship Specialty Start Date End Date Shyla Hines MD [address] [place] [id number] PCP - General Internal Medicine 12/09/18
== END 2025-02-20 07:48 | disposition home or self-care (01) ==
LOC: HO.US 07:47
PROVIDERS: PCP Physician Assistant Medical; Visit Provider Physician Assistant Medical
DX: R74.8 Abnormal levels of other serum enzymes (principal)
CPT/HCPCS: 76705; 76981

== ENCOUNTER → 2025-02-20 07:48 | Outpatient (BNV) | payer OTHER, SELFPAY | PROVIDERS: PCP Physician Assistant Medical; Visit Provider Radiology Diagnostic Radiology | DX: R74.8 Abnormal levels of other serum enzymes (principal) | CPT/HCPCS: 76705 ==

== ENCOUNTER 2025-06-12 15:49 | Outpatient (AMB) | payer OTHER, SELFPAY ==
--- NOTE | 2025-06-12 16:06 | A.OFFPC_ITS ---
Vital Signs 06/12/25 16:11 Height 5 ft 1.2 in Weight 109 lb 8 oz BMI 20.6 BP 110/68 Blood Pressure Location Rt brachial Position Sitting Respiration 12 Pulse 60 Pulse Source Pulse Oximeter Temp 97.2 F Temp Source Temporal Artery Scan Pulse Oximetry (%) 97 Oxygen Delivery Method Room Air Intake Visit Reasons: physical exam Intake Note: Shauna presents in the office today for her annual physical. Allergies No Known Allergies Allergy (Verified 06/12/25 16:10) Tobacco use date assessed: 06/12/25 Dental Screening Dental Screen Date: 06/12/25 Did you have a dental visit in the last 12 months?: Yes Did you have a dental problem in the last 6 months where you did not have access to dental care?: No Was dental information given to patient?: Patient has dentist HPI HPI Comments History of Present Illness Details This is a 64-year-old female with a past medical history of sleep apnea, RLS, hypertension, hyperlipidemia, depression with anxiety, hepatic steatosis and insomnia presenting for a physical exam. Patient takes amlodipine 5 mg daily for hypertension. This is well-controlled. She saw Dr. David michael for evaluation of bradycardia. She has a Holter monitor, and she says the nuclear physician reviewed it, and a pacemaker was not indicated. Heart rate is 60 today. She reiterates intermittent lightheadedness but no chest pain, shortness of breath or syncope. She sees Dr. Mireille Benavides at [facility] neurology for sleep apnea and RLS. Patient says that she was having leaking from her mask, so they changed it twice, and now she is using a nasal mask. It is taking some getting used to right now. She had brought up concerns at a previous visit with me about ongoing dizziness for 3-1/2 years. She describes it as feeling like her brain was moving when she was not. She also brought up chronic bilateral tinnitus which she was previously evaluated for by ENT, and she was told there was nothing they could do about this. She also described feeling like the bones in her neck were grinding when she was moving her head. She endorsed a history of migraine headaches and seeing a chiropractor for symptoms in the past. She had done some research online and was interested in having imaging done with her neurologist. She saw the neurologist for evaluation, and they told her that she needs to do physical therapy 1st. She mentioned that she tripped sometimes when she walks, and she has known degenerative disc disease in her lower back. She thinks it may benefit her, and she is not opposed to doing it . She plans to follow up with the neurologist after completing physical therapy to discuss imaging again. Her liver enzymes were mildly elevated on her routine lab work in December of 2024. Screening for hepatitis-C was negative May 2024. She had a liver ultrasound with elastography on 02/20/2025 which demonstrated minimally increased hepatic echogenicity, likely mild fatty infiltration and normal elastography values. Patient is following a diet very low in processed foods and avoiding alcohol. She denies abdominal pain, nausea and vomiting. She has lost weight since May but she attributes this to her diet, and she was evaluated for weight loss the year prior with a CT of the abdomen and pelvis which was negative for malignancy. She saw Gastroenterology, and they recommended getting a colonoscopy, but she continues to decline that. She had a negative Cologuard in July 2024. Dr. Manjarrez is her marketing summer intern. Last mammogram and bone density tests were done at [facility]. Records requested. She goes to [facility]. She recently brought up a chronic rash in the groin which is not itchy or painful. They told her the treatment was ?burning off the lesions. ? She would like this evaluated today. She is taking Ambien as needed for insomnia. It is helpful though sometimes she still struggles with sleep. She requests a refill today so the pharmacy can have it on file. I ordered follow up labs, and they have not been done yet. She would like the orders printed to be done at [facility]. Lastly she asked what I thought of parasites today. Patient says she has been reading some things online about people who work around animals and livestock an anti parasitic regimens. She was wondering about testing. She denies blood in her stools, cough, wheezing, shortness of breath, fevers, chills or abdominal pain. She has a family history of cardiovascular disease. She says that her parents developed heart disease around the age of 50. She had a normal lipid profile Se ptember 2023. She does not smoke. We discussed a coronary calcium score test, and she will let me know if she wants to proceed with it. She is traveling and gets motion sickness. She requests scopolamine patches. ROS: Constitutional: No unexplained weight loss, fever, chills, fatigue or night sweats. Eyes: No vision changes, blurry vision, double vision, eye pain, eye redness, eye discharge. ENT: No hearing loss, sneezing, congestion, runny nose or sore throat. Respiratory: No shortness of breath, cough or sputum production. Cardiovascular: No chest pain, chest pressure or chest discomfort. No palpitations or pedal edema. Gastrointestinal: No anorexia, nausea, vomiting or diarrhea. No abdominal pain or blood in stool. Genitourinary: No dysuria, hematuria, urinary frequency. Neurologic: No headache, syncope, unilateral weakness, ataxia, numbness or tingling in the extremities. No seizures or tremors. Musculoskeletal: No joint swelling. See HPI Hematologic/Lymphatics: No bleeding or bruising. No painful lymph nodes. Skin: See HPI Endocrine: No cold or heat intolerance. No polyuria or polydipsia. Psychiatric: No depression or anxiety. No SI/HI. Physical exam: Constitutional: Alert, in no distress. Head: Normocephalic. Eyes: Pupils are equal, round and reactive to light. Extraocular muscles intact. Ear, Nose and Throat: Canals clear. TMs normal. Normal nasal mucosa. No nasal discharge. No oral lesions. Neck: Supple, Full range of motion. No lymphadenopathy. No palpable thyroid masses. Respiratory: Clear to auscultation. Cardiovascular: S1 S2 regular. No murmurs. No carotid bruits. Gastrointestinal: Abdomen soft, non-tender, non-distended. Normal bowel sounds. No palpable masses. Neurologic: No focal neurological deficits. Symmetric patellar reflexes. Moves all extremities spontaneously. Sensation intact bilaterally. Skin: Small, pearly, raised umbilicated lesions in the suprapubic area Musculoskeletal: No gross deformities. Normal range of motion. Extremities: Warm and well perfused. No clubbing, cyanosis or edema. Intact peripheral pulses bilaterally. Psychiatric: Normal mood and affect [facility] Medical History (Updated 06/13/25 @ 11:08 by SANJU Kiser) Motion sickness Molluscum contagiosum Routine physical examination Weight loss Hepatic steatosis Elevated liver enzymes Neck pain Migraines Pain of right scapula Rib pain on right side Left knee pain Bradycardia Dizziness Weight loss, unintentional Sleep apnea Restless leg syndrome Periodic limb movement disorder DOMI (obstructive sleep apnea) Insomnia Hyperlipidemia Hypercoagulable state Foot cramps Exposure to hepatitis C Eczema Depression Benign essential hypertension Anxiety Surgical History (Updated 06/06/24 @ 09:57 by Purvi Brooks [facility]) History of nasal surgery History of back surgery Family History Mother HTN (hypertension) Clotting disorder Father HTN (hypertension) Clotting disorder Brother Prostate cancer Other High blood cholesterol Social History (Updated 06/12/25 @ 16:11 by Cierra Blank [facility]) Housing: House Alcohol intake: current Patient Tobacco Use Status: Never used Tobacco e-Cigarette/Vaping Use: Never Used Second Hand Smoke Exposure: No Use of substances other than those prescribed or required for medical reasons: No service: No Current occupational status: employed 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 1. Little interest or pleasure in doing things: not at all 2. Feeling down, depressed, or hopeless: not at all 3. Trouble falling or staying asleep, or sleeping too much: several days 4. Feeling tired or having little energy: not at all 5. Poor appetite or overeating: not at all 6. Feeling bad about yourself - or that you are a failure or have let yourself or your family down: not at all 7. Trouble concentrating on things, such as reading the newspaper or watching television: several days 8. Moving or speaking so slowly that other people could have noticed. Or the opposite - being so fidgety or restless that you have been moving around a lot more than usual: not at all 9. Thoughts that you would be better off or of hurting yourself in some way: not at all Total score: 2 Depression Screening Interpretation: Negative Depression Screening Done: Yes 83299 - PHQ-9 Billing: Patient declined-do not bill Source: Developed by Drs. Alistair Salinas, Chiquis Moore, Scottie Wharton and colleagues, with an educational jeannie from [employer]. Thrive Questionnaire Date Thrive assessed: 06/12/25 I am a: Patient What is your living situation today?: I have a steady place to live Within the past 12 months, did the food you bought not last and you didn't have the money to get more?: Never true Within the past 12 months, did you worry whether your food would run out before you got money to buy more?: Never true Do you have trouble paying for medicines?: No Do you have trouble getting transportation to medical appointments?: No Do you have trouble paying your heating and electricity bill?: Yes Do you have trouble taking care of your child, family member or friend?: No Do you have trouble with day-to-day activities such as bathing, preparing meals, shopping, managing finances, etc.?: No Are you currently unemployed and looking for a job?: No Are you interested in more education?: No Please select the resources that you would like help with: None Currently or been in a relationship where the following occur: No concerns reported THRIVE Score: 1 AUDIT C Alcohol Use Questionnaire (AUDIT-C) 1. How often do you have a drink containing alcohol?: Monthly or less 2. How many drinks containing alcohol do you have on a typical day when you are drinking?: 1 or 2 3. How often do you have six or more drinks on one occasion?: Never Total Score: 1 APOLINAR-7 AMB Questionnaire APOLINAR-7 Date APOLINAR - 7 assessed: 12/08/24 Feeling nervous, anxious, or on edge: 0 = Not at all Not being able to stop or control worryin = Not at all Worrying too much about different things: 0 = Not at all Trouble relaxin = Not at all Being so restless that it is hard to sit still: 0 = Not at all Becoming easily annoyed or irritable: 0 = Not at all Feeling afraid as if something awful might happen: 0 = Not at all Total APOLINAR-7 score (0-4 normal; 5-9 mild; 10-14 moderate; 15-21 severe): 0 Source: Developed by Drs. Alistair Salinas, Chiquis Moore, Scottie Wharton and colleagues, with an educational jeannie from [employer]. APOLINAR-7 Assessment Billing APOLINAR-7 Assessment Tool: APOLINAR-7 Assessment 03897 Physical exam (Primary Care) Vital Signs: Last Vital Signs Temp 97.2 F 06/12/25 16:11 Pulse 60 06/12/25 16:11 Resp 12 06/12/25 16:11 BP 110/68 06/12/25 16:11 Pulse Ox 97 06/12/25 16:11 Oxygen Delivery Method Room Air 06/12/25 16:11 BMI result Body Mass Index 20.6 Tobacco/Smoking Status: Tobacco use Status Tobacco use date assessed 06/12/25 06/12/25 16:15 Patient Tobacco Use Status Never used Tobacco 06/12/25 16:11 e-Cigarette/Vaping Use Never Used 06/12/25 16:11 PHQ-9: PHQ-9 Score PHQ-9: Total score 2 06/12/25 16:26 Depression Screening Interpretation: Negative Thrive Assessment: Date of Thrive Assessment Date Thrive assessed 06/12/25 06/12/25 16:26 Currently or been in a relationship where the following occur: No concerns reported Coding Level of Care Code Est Pt Level 4 (58943) Est Pt Prev Care 40-64y(95056) Diagnoses Routine physical examination Z00.00 Dizziness R42 DOMI (obstructive sleep apnea) G47.33 Insomnia G47.00 Neck pain M54.2 Hepatic steatosis K76.0 Benign essential hypertension I10 Molluscum contagiosum B08.1 Weight loss R63.4 Motion sickness T75.3XXA Additional Codes APOLINAR-7 Assessment Billing - APOLINAR-7 Assessment Tool: APOLINAR-7 Assessment [id number] ([id number]) Assessment & Plan Assessment & Plan (1) Routine physical examination: Code(s): Z00.00 - Encounter for general adult medical examination without abnormal findings Category: Medical Plan: Patient is seen today for a routine physical. As part of this visit we reviewed the following issues, which are considered and essential part of preventative health in this age group: - Breast Cancer screening - Annual Manual Equipment Mechanic exam - Screening for colon cancer - Cholesterol screening - Osteoporosis prevention including calcium/vitamin D intake, weight bearing exercise & smoking cessation - Nutritional and exercise counseling - Screening for depression - Recommendations about immunizations. She declined influenza vaccine today. - Recommendation of an eye exam Owing to patient's concerns I ordered a stool test for ova and parasites. I printed her lab orders to take to [facility]. (2) Dizziness: Code(s): R42 - Dizziness and giddiness Category: Medical Plan: She was evaluated by Cardiology, and she reportedly had a Holter monitor, and pacemaker was not indicated. Her blood pressure is well-controlled. She has seen Neurology, and she is going to physical therapy and plans to follow up to discuss imaging when she completes this. (3) DOMI (obstructive sleep apnea): Code(s): G47.33 - Obstructive sleep apnea (adult) (pediatric) Category: Medical Plan: She is using a CPAP. (4) Insomnia: Code(s): G47.00 - Insomnia, unspecified Category: Medical Plan: Continue zolpidem 10 mg at bedtime as needed. She is aware this is more than the FDA recommended dose, but lower dosages were ineffective, and she is tolerating this. (5) Neck pain: Code(s): M54.2 - Cervicalgia Category: Medical Plan: See above in HPI regarding plan with Neurology. (6) Hepatic steatosis: Code(s): K76.0 - Fatty (change of) liver, not elsewhere classified Category: Medical Plan: Continue avoidance of alcohol and diet low in processed foods. Avoid high cholesterol foods. We will recheck an ultrasound a year after the 1st 1. Elastography measurements were normal. (7) Benign essential hypertension: Code(s): I10 - Essential (primary) hypertension Category: Medical Plan: Controlled. Continue amlodipine. (8) Molluscum contagiosum: Code(s): B08.1 - Molluscum contagiosum Category: Medical Plan: We discussed the pathophysiology of the rash. Treatment options were reviewed. She has seen her cow buyer and does not want to proceed with cryotherapy. She can try [id number] remedies Zymaderm. If it causes skin irritation she should discontinue it. (9) Weight loss: Code(s): R63.4 - Abnormal weight loss Category: Medical Plan: She was evaluated for this previously. She had a CAT scan which was negative for malignancy. Labs did not show any cause for symptoms. She saw Gastroenterology and defers colonoscopy, but she had a negative Cologuard, and she attributes weight loss to lifestyle modifications. (10) Motion sickness: Code(s): T75.3XXA - Motion sickness, initial encounter Category: Medical Plan: Scopolamine patches ordered. Plan Follow up in 6 months. Orders: Orders Ova and Parasite 06/12/25 R63.4 - Abnormal weight loss Medications: New scopolamine base 1 patch transdermal Q72H PRN 24 ea 0RF nausea and vomiting Refilled zolpidem 10 mg PO BEDTIME PRN 30 tabs 1RF sleep
[2025-06-12 16:11] VITALS: BP 110/68; PULSE 60; RESP 12; TEMP 36.2; O2SAT 97; BMI 20.6
--- OUTSIDE RECORDS SUMMARY | 2025-06-12 18:08 | XMS_ITS | Clinical Summary ---
Author Organization [facility] Address [address] [place] [address] Care Team Providers Care Media Sales Executive Name Role Phone Shyla Hines MD Primary [...] 64 12/23/2018 3:00 PM EDT Temperature 36.7 C (98.1 F) 12/23/2018 3:00 PM EDT Respiratory Rate - - Oxygen Saturation - [...] (1 of 2) 2010 Influenza Vaccine (#1) 2025 Pneumococcal Vaccine (1 of 1 - [...] age to complete this topic Care Teams Media Sales Executive Relationship Specialty Start Date End Date Shyla Hines MD [address] [place] [id number] PCP - General Internal Medicine 12/09/18
== END 2025-06-12 17:05 | disposition home or self-care (01) ==
LOC: HO.HMCFM 15:50
PROVIDERS: PCP Physician Assistant Medical; Visit Provider Physician Assistant Medical
DX: Z00.00 Encounter for general adult medical examination without abnormal findings (principal); R42 Dizziness and giddiness; B08.1 Molluscum contagiosum; T75.3XXA Motion sickness, initial encounter; G47.33 Obstructive sleep apnea (adult) (pediatric); G47.00 Insomnia, unspecified; M54.2 Cervicalgia; K76.0 Fatty (change of) liver, not elsewhere classified; I10 Essential (primary) hypertension; R63.4 Abnormal weight loss

== ENCOUNTER → 2025-06-12 15:49 | Outpatient (BNVA) | payer OTHER, SELFPAY | PROVIDERS: PCP Physician Assistant Medical; Visit Provider Physician Assistant Medical | DX: Z00.00 Encounter for general adult medical examination without abnormal findings (principal); R42 Dizziness and giddiness; G47.33 Obstructive sleep apnea (adult) (pediatric); G47.00 Insomnia, unspecified; M54.2 Cervicalgia; K76.0 Fatty (change of) liver, not elsewhere classified; I10 Essential (primary) hypertension; B08.1 Molluscum contagiosum; R63.4 Abnormal weight loss; T75.3XXA Motion sickness, initial encounter; G25.81 Restless legs syndrome; Z79.899 Other long term (current) drug therapy; Z13.31 Encounter for screening for depression | CPT/HCPCS: 96127 ==